=== PATIENT | female | born 1995 | race American Indian/Alaskan Native ===

== ENCOUNTER 2020-07-09 17:28 | Emergency (ER) | payer OTHER ==
[2020-07-09 19:33] VITALS: BP 139/73
--- NOTE | 2020-07-09 19:38 | Emergency Department Report ---
ED Fall HPI - General Chief Complaint: Abdominal Pain Stated Complaint: AIDEE/ABD/SHOULDER PAIN Time Seen by Provider: 07/09/20 19:33 Source: patient Mode of arrival: Ambulatory - History of Present Illness Initial Comments: 24-year-old 20-week female presents emerge department complaining of a mechanical trip and fall landing on her right side on a wood floor causing pain to her right ribs and abdominal region. She reports no vaginal bleeding, no vaginal discharge of fluid discharge of any type. Reports no fever, chills, sweats. No hemoptysis no hematemesis hematochezia pain to the right chest with with palpation and deep breath. She reports no presyncope or head trauma. Fall From: standing Place Fall Occurred: home Loss of Consciousness: none Prolonged Down Time?: no Symptoms Prior to Fall: none Quality: dull, aching Context: tripped/slipped Associated Symptoms: shortness of breath, abdominal pain. denies: neck pain, numbness, hematuria, lightheaded, confusion - Related Data Allergies Allergy/AdvReac Type Severity Reaction Status Date / Time No Known Allergies Allergy Unverified 07/09/20 19:33 ED Review of Systems ROS: Stated complaint: AIDEE/ABD/SHOULDER PAIN Other details as noted in HPI Comment: All other systems reviewed and negative ED Past Medical Hx - Past Medical History Previous Medical History?: No ED Physical Exam - General Limitations: No Limitations General appearance: alert, in no apparent distress - Head Head exam: Present: atraumatic, normocephalic - Eye Eye exam: Present: normal appearance, PERRL, EOMI Pupils: Present: normal accommodation - ENT ENT exam: Present: normal exam, normal orophraynx, mucous membranes moist, TM's normal bilaterally - Neck Neck exam: Present: normal inspection, full ROM. Absent: tenderness, meningismus, lymphadenopathy - Respiratory Respiratory exam: Present: normal lung sounds bilaterally, chest wall tenderness (To the right rib region with palpation. But no ecchymosis noted.). Absent: respiratory distress, wheezes, rales, rhonchi, decreased breath sounds - Cardiovascular Cardiovascular Exam: Present: regular rate, normal rhythm. Absent: systolic murmur, diastolic murmur, rubs, gallop - GI/Abdominal GI/Abdominal exam: Present: soft, tenderness (Tenderness to the suprapubic region with palpation. No rebound, abdomen the abdomen is still soft), normal bowel sounds - Extremities Exam Extremities exam: Present: normal inspection - Back Exam Back exam: Present: normal inspection - Neurological Exam Neurological exam: Present: alert, oriented X3 - Psychiatric Psychiatric exam: Present: normal affect, normal mood - Skin Skin exam: Present: warm, dry, intact, normal color. Absent: rash ED Course Vital Signs 07/09/20 19:33 Temperature 98.8 F Pulse Rate 94 H Respiratory 18 Rate Blood Pressure 139/73 [Right] O2 Sat by Pulse 100 Oximetry ED Medical Decision Making - Lab Data Result diagrams: 07/09/20 19:42 Lab Results 07/09/20 07/09/20 Range/Units 19:42 19:42 WBC 11.4 H (4.5-11.0) K/mm3 RBC 3.69 (3.65-5.03) M/mm3 Hgb 11.5 (10.1-14.3) gm/dl Hct 33.9 (30.3-42.9) % MCV 92 (79-97) fl MCH 31 (28-32) pg MCHC 34 (30-34) % RDW 14.8 (13.2-15.2) % Plt Count 311 (140-440) K/mm3 Lymph % (Auto) 16.2 (13.4-35.0) % [place] % (Auto) 10.7 H (0.0-7.3) % Eos % (Auto) 1.4 (0.0-4.3) % Baso % (Auto) 0.6 (0.0-1.8) % Lymph # (Auto) 1.9 (1.2-5.4) K/mm3 [place] # (Auto) 1.2 H (0.0-0.8) K/mm3 Eos # (Auto) 0.2 (0.0-0.4) K/mm3 Baso # (Auto) 0.1 (0.0-0.1) K/mm3 Seg Neutrophils % 71.1 H (40.0-70.0) % Seg Neutrophils # 8.1 H (1.8-7.7) K/mm3 HCG, Quant 86200 H (0-4) mIU/mL - Radiology Data Radiology results: report reviewed [address] [place] [id number] XRay Report Signed Patient: VIDHI PUENTES#: [id number] : 1995 Acct:[id number] Age/Sex: 24 / F ADM Date: 07/09/20 Loc: ED Attending Dr: Ordering Physician: FREYA PRADO Date of Service: 07/09/20 Procedure(s): XR ribs UNI w PA Chest 3+V RT Accession Number(s): [id number] cc: FREYA PRADO Fluoro Time In Minutes: RIGHT RIBS 3 VIEWS INDICATION / CLINICAL INFORMATION: Fall with lower right rib pain. COMPARISON: None available. FINDINGS: RIBS: No acute, displaced fracture or other acute abnormality. LUNGS: No acute findings. No pneumothorax. Signer Name: Anurag Perez MD Signed: 07/09/2020 9:05 PM Workstation Name: [id number] Transcribed By: SS Dictated By: Anurag Perez MD Electronically Authenticated By: Anurag Perez MD Signed Date/Time: 07/09/202104 DD/ 03 TD/TT: Ultrasound shows a heart rate of 164 with a estimated weight of 331 g. 20 weeks and 1 day no complications appreciated Print Cancel - Medical Decision Making 24-year-old [place] female 20 weeks status post slip and fall on the right side resulting in pain to the ribs and abdomen. X-rays were negative for fracture, pneumothorax or acute cardiopulmonary issues ultrasound also negative for any acute processes Critical care attestation.: If time is entered above; I have spent that time in minutes in the direct care of this critically ill patient, excluding procedure time. ED Disposition Clinical Impression: Fall, Rib pain, Pelvic pain Disposition: DC-01 TO HOME OR SELFCARE Is pt being admited?: No Does the pt Need Aspirin: No Condition: Stable Instructions: Abdominal Pain (ED), Nonspecific Chest Pain, Adult, Back Pain in , Pelvic Pain, Female, [id number], Chest Wall Pain, [id number], Pain Without a Known Cause, How to Use Cold Therapy Additional Instructions: Please be sure to follow-up with your DIRECTOR INDEPENDENT tomorrow for reevaluation utilize Tylenol as needed for pain.
[2020-07-09 20:19] LABS: Basophils # (Auto) 0.1 K/mm3 (0.0-0.1); Basophils % (Auto) 0.6 % (0.0-1.8); Eosinophils # (Auto) 0.2 K/mm3 (0.0-0.4); Eosinophils % (Auto) 1.4 % (0.0-4.3); Hematocrit 33.9 % (30.3-42.9); Hemoglobin 11.5 gm/dl (10.1-14.3); Lymphocytes # (Auto) 1.9 K/mm3 (1.2-5.4); Lymphocytes % (Auto) 16.2 % (13.4-35.0); Mean Corpuscular HGB Conc 34 % (30-34); Mean Corpuscular Volume 92 fl (79-97); Monocytes # (Auto) 1.2 K/mm3 (0.0-0.8); Monocytes % (Auto) 10.7 % (0.0-7.3); Platelet Count 311 K/mm3 (140-440); Red Blood Count 3.69 M/mm3 (3.65-5.03); Red Cell Distribution Width 14.8 % (13.2-15.2)
--- NOTE | 2020-07-09 21:10 | XRay Report ---
RIGHT RIBS 3 VIEWS INDICATION / CLINICAL INFORMATION: Fall with lower right rib pain. COMPARISON: None available. FINDINGS: RIBS: No acute, displaced fracture or other acute abnormality. LUNGS: No acute findings. No pneumothorax. Signer Name: Anurag Perez MD Signed: 07/09/2020 9:05 PM Workstation Name: [id number]
--- NOTE | 2020-07-09 22:29 | Ultrasound Report ---
ULTRASOUND OBSTETRIC COMPLETE INDICATION / CLINICAL INFORMATION: abd pain after fall. Clinical Gestational Age (GA) in weeks.days: 20.1 TECHNIQUE: Transabdominal. COMPARISON: None available. FINDINGS: Technically difficult examination. Patient unable to tolerate full examination secondary to significant pain. NUMBER: Single PRESENTATION: cephalic PLACENTA: Grade 1 morphology with anterior position and free of the os. MATERNAL ADNEXA: No significant abnormality. AMNIOTIC FLUID VOLUME: normal AMNIOTIC FLUID INDEX (KJ) in cm (if measured): Not measured. ANATOMY: Unable to perform on today's examination. MEASUREMENTS: - Biparietal Diameter = 4.7 cm = 20.1 weeks.days - Head Circumference = 17.6 cm = 20.0 weeks.days - Abdominal Circumference = 14.4 cm = 19.5 weeks.days - Femur Length = 3.4 cm = 20.4 weeks.days - Estimated Weight (in grams, if calculated): 331 g - Heart Rate (beats per minute): 164 ADDITIONAL FINDINGS: Cervical length is 2.4 cm. No evidence of funneling. PERCENTILE ESTIMATED WEIGHT (if calculated): Not calculated. AVERAGE ULTRASOUND AGE (AUA) in weeks.days = 20.1 IMPRESSION: 1. Single intrauterine with AUA of 20.1 weeks.days 2. Cervical length is decreased at 2.4 cm. No evidence of funneling. 3. Additional findings as above. Signer Name: Manav Brice MD Signed: 07/09/2020 10:24 PM Workstation Name: [id number]
== END 2020-07-09 23:15 | disposition home or self-care (01) ==
LOC: ED 17:28
DX: R07.81 Pleurodynia (principal); R10.2 Pelvic and perineal pain; W01.0XXA Fall on same level from slipping, tripping and stumbling without subsequent striking against object, initial encounter; Y93.89 Activity, other specified; Y92.89 Other specified places as the place of occurrence of the external cause; Y99.8 Other external cause status
CPT/HCPCS: 36415; 76805; 84702; 85025

== ENCOUNTER 2020-08-09 23:36 | Outpatient (CLI) | payer OTHER ==
[2020-08-09] MEDS ORDERED: LACTATED RINGERS 500 ML IV ONE (23:39)
[2020-08-10 00:12] VITALS: BP 123/67
--- NOTE | 2020-08-10 01:59 | Ultrasound Report ---
ULTRASOUND OBSTETRIC INDICATION / CLINICAL INFORMATION: PLACENTA INTEGRITY. Clinical Gestational Age (GA): TECHNIQUE: Transabdominal. COMPARISON: 07/09/2020 FINDINGS: There is a single intrauterine . Heart Rate: 163 beats per minute. Estimated Weight in grams (if calculated): Estimated Weight Growth Percentile (if calculated): Position: cephalic. Cervix: closed. Length in cm (if measured): Placenta: anterior and free of the os. Amniotic Fluid Volume: normal Amniotic Fluid Index (KJ) in cm (if calculated): . Maternal Adnexa: No significant abnormality. IMPRESSION: 1. . No significant sonographic abnormality. No evidence of a placental abruption Signer Name: Blane Worthy MD Signed: 08/10/2020 1:55 AM Workstation Name: [id number]
== END 2020-08-10 01:11 | disposition home or self-care (01) ==
LOC: TRG 23:36 → APU 08-10 00:03 → TRG 08-10 01:11
PROVIDERS: ATTEND Obstetrics & Gynecology
DX: Z34.92 Encounter for supervision of normal pregnancy, unspecified, second trimester (principal); Z3A.24 24 weeks gestation of pregnancy
CPT/HCPCS: 59025; 76815

== ENCOUNTER 2020-08-27 18:21 | Outpatient (CLI) | payer OTHER ==
[2020-08-27] MEDS ORDERED: LACTATED RINGERS 1,000 ML IV ONE (18:26)
[2020-08-27 19:32] LABS: Bilirubin,Urine NEG (Negative); Blood,Urine NEG (Negative); Color,Urine Yellow (Yellow); Hyaline Casts,Urine 1 /LPF; Mucus,Urine FEW /HPF; Protein,Urine <15 mg/dL mg/dL (Negative); Urobilinogen,Urine < 2.0 mg/dL (<2.0)
[2020-08-27 20:29] VITALS: BP 122/66
[2020-08-27] MEDS ORDERED: ACETAMINOPHEN 500 MG TAB PO ONE (20:44)
[2020-08-27] MEDS ORDERED: METOCLOPRAMIDE 10 MG TAB PO ONE (20:45)
[2020-08-27] MEDS ORDERED: diphenhydrAMINE 25 MG CAP PO ONE (20:45)
--- NOTE | 2020-08-27 21:42 | Event Note ---
Date: 08/27/20 (HOLT) Pt presented to triage with c/o a HOLT, nausea, and feeling dizzy. She is 27+ wks . Her main concern at the time of this assessment is her HOLT. States that the HOLT started this morning and is unrelieved by two doses of Tylenol. Pt states that she drinks plenty of water, but when questioned further she states that she drinks mostly sugary drinks and has had only one cup of water today. We discussed that she needs to stay hydrated and that sugary drinks in large amounts can cause dehydration. Will plan for IV fluids, medications for HOLT. We discussed relief measures for a HOLT. She denies blurred vision, spots before her eyes, chest pain, shortness of breath, upper abdominal pain, vaginal bleeding, LOF, ctxs. Her blood pressures have been WNL. After medication administration, pt with resolution of her HOLT. Pt to follow up in the office on 08/30 @ 1000am. Pt aware of appointment date and time.
== END 2020-08-27 22:49 | disposition home or self-care (01) ==
LOC: TRG 18:21 → APU 18:23 → TRG 22:49
PROVIDERS: ATTEND Obstetrics & Gynecology
DX: O26.892 Other specified pregnancy related conditions, second trimester (principal); R11.0 Nausea; R51.9 Headache, unspecified; R42 Dizziness and giddiness; O47.02 False labor before 37 completed weeks of gestation, second trimester; Z3A.27 27 weeks gestation of pregnancy
CPT/HCPCS: 59025; 81001; 96360; 96361; J7120

== ENCOUNTER 2020-09-27 15:32 | Outpatient (CLI) | payer OTHER ==
[2020-09-27] MEDS ORDERED: LACTATED RINGERS 1,000 ML IV ONE (16:07)
[2020-09-27 16:35] LABS: Bacteria,Urine 1+ /HPF (Negative); Bilirubin,Urine NEG (Negative); Blood,Urine NEG (Negative); Color,Urine Yellow (Yellow); Mucus,Urine FEW /HPF; Protein,Urine <15 mg/dL mg/dL (Negative); Urobilinogen,Urine < 2.0 mg/dL (<2.0)
[2020-09-27 16:56] VITALS: BP 115/64
== END 2020-09-27 18:10 | disposition home or self-care (01) ==
LOC: TRG 15:32 → APU 15:34 → TRG 18:10
PROVIDERS: ATTEND Obstetrics & Gynecology
DX: Z34.93 Encounter for supervision of normal pregnancy, unspecified, third trimester (principal); Z3A.31 31 weeks gestation of pregnancy
CPT/HCPCS: 59025; 81001

== ENCOUNTER 2020-10-25 21:30 | Observation (INO) | payer OTHER ==
[2020-10-25 23:17] LABS: Hematocrit 32.1 % (30.3-42.9); Mean Corpuscular HGB Conc 34 % (30-34); Mean Corpuscular Volume 91 fl (79-97); Platelet Count 306 K/mm3 (140-440); Red Blood Count 3.52 M/mm3 (3.65-5.03); Red Cell Distribution Width 14.1 % (13.2-15.2)
[2020-10-25 23:26] LABS: Bilirubin,Urine NEG (Negative); Blood,Urine NEG (Negative); Color,Urine Yellow (Yellow); Mucus,Urine 3+ /HPF
[2020-10-25 23:42] LABS: Alanine Aminotransferase 12 units/L (7-56)
[2020-10-26 01:20] LABS: Uric Acid 3.2 mg/dL (3.5-7.6)
[2020-10-26] MEDS ORDERED: DOCUSATE SODIUM 100 MG CAP PO PRN (01:39)
--- NOTE | 2020-10-26 01:48 | History and Physical Report ---
History of Present Illness Date of examination: 10/26/20 Chief complaint: Headache History of present illness: EDC Calculations LMP: 11/25/2020 Past History : 2 Term Births: 0 Premature Births: 1 Living Children: 0 Para: 0 Mult. Births: 1 Prev : 0 Aborta: 0 Elect. Ab: 0 Spont. Ab: 0 Ectopics: 0 # 1 Delivery date: 11/11/2014 Weeks Gestation: 5 months? labor: yes Delivery type: Hours of labor: 6 hours Anesthesia type: none Delivery location: [facility] Infant Sex: Female weight: 1-8,1-9 Comments: Premature ROM, , Twins, female X 2. Past Medical History: Reviewed history and no changes required: Scoliosis cHTN Anemia Past Surgical History: Reviewed history and no changes required: negative Past Medical History Anesthesia Complications: negative Anemia: positive Autoimmune Disorder: negative Bleeding Disorder: negative Blood Transfusions: negative Breast Disease: negative Diabetes: negative Heart Disease: negative Hypertension: negative Hepatitis/Liver Disease: negative Kidney Disease/UTI: negative Neurologic/Epilepsy/Migraines: negative Phlebitis/Varicosities: negative Psychiatric: positive, depression Pulmonary Disease/Asthma: negative Thyroid Disease: negative Hospitalizations: negative Surgery (Non-gynecologist): negative Abnormal PAP: negative RADHA Exposure: negative Infertility: negative Uterine Anomaly: negative Uterine Surgery (not C/S): negative Other Gynecologic Problems: negative Family Hx: HTN: Mother, MGF, MGM CA: MGM DM: Mother Infection History Hx of STD: chlamydia HIV Risk Eval: no Hepatitis B Risk Eval: low risk Personal hx. of genital herpes: no Partner hx. of genital herpes: no Rash, Viral, or Febrile illness since last LMP? no Varicella/Chicken Pox Status: Unknown TB Risk: no Genetic History Congenital Heart Defect: Mom: no Dad: no Marian Disease: Mom: no Dad: no Thalassemia Mom: no Dad: no Neural Tube Defect Mom: no Dad: no Down's Syndrome Mom: no Dad: no Sal-Sachs Mom: no Dad: no Sickle Cell Disease/Trait Mom: no Dad: no Hemophilia Mom: no Dad: no Muscular Dystrophy Mom: no Dad: no Cystic Fibrosis Mom: no Dad: no Door Chorea Mom: no Dad: no Mental Retardation Mom: no Dad: no Fragile X Mom: no Dad: no Other Genetic/Chromosomal Disorder Mom: no Dad: no Child w/other defect Mom: no Dad: no Enviromental Exposures Xray Exposure: no Medication, drug, or alcohol use since LMP: no Chemical/Other Exposure: no Exposure to Cat Liter: no Hx of Parvovirus (Fifth Disease): no Occupational Exposure to Children: none Active Medications (reviewed today): ONDANSETRON 8 MG ORAL TABLET DISINTEGRATING (ONDANSETRON) 1 po q12hrs prn VITAMINS TABS ( VIT-FE FUMARATE-FA TABS) 1 tab po qday Current Allergies (reviewed today): No known allergies Past History Past Medical History: hypertension Past Surgical History: other (see HPI) WEB EDITOR History: other (see HPI) Family/Genetic History: other (see HPI) Social history: no significant social history - Obstetrical History Expected Date of Delivery: 11/25/20 Actual Gestation: 36 Week(s) 1 Day(s) : 2 Para: 1 Hx # Term Pregnancies: 0 Number of Pregnancies: 1 Spontaneous Abortions: 0 Induced : 0 Number of Living Children: 0 Medications and Allergies Allergies Allergy/AdvReac Type Severity Reaction Status Date / Time No Known Allergies Allergy Verified 08/09/20 23:40 Home Medications Medication Instructions Recorded Confirmed Last Taken Type No Known Home Medications [No 10/26/20 10/26/20 Unknown History Reported Home Medications] Active Meds: Active Medications Acetaminophen (Acetaminophen 325 Mg Tab) 650 mg PO Q4H PRN PRN Reason: Pain MILD(1-3)/Fever >100.5/HOLT Acetaminophen/Butalbital/Caffeine (Butalb/Acetaminophen/Caffeine Tab) 2 tab PO ONCE ONE Stop: 10/26/20 02:30 Docusate Sodium (Docusate Sodium 100 Mg Cap) 100 mg PO Q12H PRN PRN Reason: Constipation Hydroxyzine Pamoate (Hydroxyzine Pamoate 50 Mg Cap) 100 mg PO ONCE ONE Stop: 10/26/20 02:29 Multivitamins/Iron/Calcium ( Wlv46-Nr Fumarate-Folic Acid Vit Tab) 1 each PO QDAY PUMA Review of Systems All systems: negative Neurological: headaches - Vital Signs Vital signs: Vital Signs Pulse BP 94 H 125/77 10/25/20 22:20 10/25/20 22:20 Temp Pulse Resp BP Pulse Ox 79 121/70 100 10/26/20 01:41 10/26/20 01:30 10/26/20 01:41 Results Result Diagrams: 10/25/20 22:30 10/25/20 22:30 Abnormal lab results 10/25/20 10/25/20 Range/Units 22:30 22:30 RBC 3.52 L (3.65-5.03) M/mm3 Creatinine 0.4 L (0.6-1.2) mg/dL Uric Acid 3.2 L (3.5-7.6) mg/dL All other labs normal. Assessment and Plan Pt presented with HOLT unrelieved by tylenol and a hx HTN. she reported her b/p at home by own Minded device 140/98. Plan to admit for b/p monitoring and repeat 24hr urine. 05/27/20 24h TP 144. Admission orders in EMR. - Patient Problems (1) 35 weeks gestation of Status: Acute (2) HTN (hypertension) Status: Acute (3) Headache Status: Acute Qualifiers: Headache chronicity pattern: acute headache Plan to address problem: blood pressures normotensive will monitor and collect 24hr urine (4) Rubella non-immune status, antepartum Status: Acute
[2020-10-26] MEDS ORDERED: BUTALB/ACETAMINOPHEN/CAFFEINE TAB PO ONE (02:29)
--- NOTE | 2020-10-26 07:58 | Progress Note ---
Assessment and Plan A: 24 y.o. @ 35.5 wks with c/o HOLT. Hx of cHTN. P: Continue with 24 hour collection. Due to be completed @ 0300am on 10/27. Continue to monitor status through EFM. Continue to monitor blood pressures and for s/sx of pre eclampsia. Subjective - Subjective Date of service: 10/26/20 (Pt feeling better.) Principal diagnosis: IUP @ 35.5 wks, HOLT, Hx of cHTN no meds Patient reports: movement normal, no new complaints, no loss of fluid, no vaginal bleeding, no contractions Objective - Vital Signs Vital Signs: Vital Signs - 12hr 10/25/20 10/25/20 10/25/20 22:20 22:21 22:26 Temperature Pulse Rate 94 H 85 90 Respiratory Rate Blood Pressure 125/77 O2 Sat by Pulse 100 100 Oximetry 10/25/20 10/25/20 10/25/20 22:31 22:36 22:42 Temperature Pulse Rate 91 H 85 85 Respiratory Rate Blood Pressure 124/70 O2 Sat by Pulse 100 100 100 Oximetry 10/25/20 10/25/20 10/25/20 22:47 22:52 22:57 Temperature Pulse Rate 89 81 87 Respiratory Rate Blood Pressure O2 Sat by Pulse 99 99 100 Oximetry 10/25/20 10/25/20 10/25/20 23:00 23:02 23:07 Temperature Pulse Rate 83 89 94 H Respiratory Rate Blood Pressure 122/74 O2 Sat by Pulse 100 100 Oximetry 10/25/20 10/25/20 10/25/20 23:12 23:17 23:22 Temperature Pulse Rate 96 H 95 H 95 H Respiratory Rate Blood Pressure O2 Sat by Pulse 100 100 100 Oximetry 10/25/20 10/25/20 10/25/20 23:27 23:30 23:32 Temperature Pulse Rate 100 H 97 H 88 Respiratory Rate Blood Pressure 129/78 O2 Sat by Pulse 100 100 Oximetry 10/25/20 10/25/20 10/25/20 23:37 23:42 23:47 Temperature Pulse Rate 98 H 87 92 H Respiratory Rate Blood Pressure O2 Sat by Pulse 100 100 100 Oximetry 10/25/20 10/25/20 10/26/20 23:52 23:57 00:00 Temperature Pulse Rate 85 94 H 88 Respiratory Rate Blood Pressure 128/67 O2 Sat by Pulse 100 99 Oximetry 10/26/20 10/26/20 10/26/20 00:02 00:07 00:12 Temperature Pulse Rate 92 H 86 89 Respiratory Rate Blood Pressure O2 Sat by Pulse 100 100 100 Oximetry 10/26/20 10/26/20 10/26/20 00:17 00:22 00:27 Temperature Pulse Rate 99 H 92 H 96 H Respiratory Rate Blood Pressure O2 Sat by Pulse 100 100 100 Oximetry 10/26/20 10/26/20 10/26/20 00:31 00:32 00:37 Temperature Pulse Rate 87 86 94 H Respiratory Rate Blood Pressure 120/67 O2 Sat by Pulse 100 100 Oximetry 10/26/20 10/26/20 10/26/20 00:42 00:47 00:52 Temperature Pulse Rate 87 89 78 Respiratory Rate Blood Pressure O2 Sat by Pulse 100 100 100 Oximetry 10/26/20 10/26/20 10/26/20 00:57 01:00 01:02 Temperature Pulse Rate 90 82 86 Respiratory Rate Blood Pressure 117/70 O2 Sat by Pulse 100 99 Oximetry 10/26/20 10/26/20 10/26/20 01:11 01:16 01:21 Temperature Pulse Rate 81 92 H 88 Respiratory Rate Blood Pressure O2 Sat by Pulse 100 100 100 Oximetry 10/26/20 10/26/20 10/26/20 01:26 01:30 01:31 Temperature Pulse Rate 81 76 82 Respiratory Rate Blood Pressure 121/70 O2 Sat by Pulse 100 100 Oximetry 10/26/20 10/26/20 10/26/20 01:36 01:41 01:46 Temperature Pulse Rate 95 H 79 80 Respiratory Rate Blood Pressure O2 Sat by Pulse 99 100 100 Oximetry 10/26/20 10/26/20 10/26/20 01:51 01:56 02:01 Temperature Pulse Rate 83 89 72 Respiratory Rate Blood Pressure O2 Sat by Pulse 100 100 100 Oximetry 10/26/20 10/26/20 10/26/20 02:43 05:34 05:38 Temperature 98.1 F 98.2 F Pulse Rate 73 Respiratory 17 Rate Blood Pressure 130/73 O2 Sat by Pulse Oximetry 10/26/20 07:47 Temperature Pulse Rate 74 Respiratory Rate Blood Pressure 118/75 O2 Sat by Pulse Oximetry - Exam Narrative Exam: Pt denies HOLT, blurred vision, spots before eyes, chest pain, shortness of breath, upper abdominal pain, vaginal bleeding, LOF, and ctxs. We discussed should any of these symptoms occur to let the RN know immediately. Breasts: deferred Cardiovascular: Regular rate Lungs: Normal air movement Abdomen: Present: normal appearance, soft Uterus: Present: normal FHR: category 1 Uterine Contraction Monitor Mode: External Uterine Contraction Pattern: Absent Extremities: normal Deep Tendon Reflex Grade: Normal +2 - Labs Labs: Abnormal Labs 10/25/20 10/25/20 22:30 22:30 RBC 3.52 L Creatinine 0.4 L Uric Acid 3.2 L Laboratory Results - last 24 hr 10/25/20 10/25/20 10/25/20 22:30 22:30 22:30 WBC 7.9 RBC 3.52 L Hgb 11.0 Hct 32.1 MCV 91 MCH 31 MCHC 34 RDW 14.1 Plt Count 306 Creatinine 0.4 L Estimated GFR > 60 Uric Acid 3.2 L AST 16 ALT 12 Lactate Dehydrogenase 169 Urine Color Yellow Urine Turbidity Clear Urine pH 5.0 Ur Specific [employer] [place] 1.029 Urine Protein 30 mg/dl Urine Glucose (UA) Neg Urine Ketones Neg Urine Blood Neg Urine Nitrite Neg Urine Bilirubin Neg Urine Urobilinogen 2.0 Ur Leukocyte Esterase Neg Urine WBC (Auto) 3.0 Urine RBC (Auto) 4.0 U Epithel Cells (Auto) 5.0 Urine Mucus 3+
[2020-10-26] MEDS: ACETAMINOPHEN 325 MG TAB PO PRN (09:45)
[2020-10-26] MEDS ORDERED: PRENATAL VIT27-FE FUMARATE-FOLIC ACID VIT TAB PO SCH (10:00)
[2020-10-27] MEDS: ACETAMINOPHEN 325 MG TAB PO PRN (01:14)
[2020-10-27 03:19] LABS: Creatinine,Urine 94.1 mg/dL (0.1-20.0)
[2020-10-27] MEDS ORDERED: ZOLPIDEM 5 MG TAB PO PRN (03:35)
[2020-10-27 03:43] LABS: Creatinine 24 Hour,Urine 1.5 (0.8-2.8)
[2020-10-27] MEDS ORDERED: LACTATED RINGERS 500 ML IV SCH (03:45)
[2020-10-27] MEDS ORDERED: LACTATED RINGERS 1,000 ML ONE (04:08)
--- NOTE | 2020-10-27 07:04 | Discharge Summary ---
Providers - Providers Date of Admission: 10/26/20 01:40 Date of discharge: 10/27/20 (Pt desires to go home) Attending physician: SEBAS SANDS Primary care physician: MYRNA GERONIMO Hospitalization Reason for admission: other (24hr urine collection TP 240) Hospital course: Elevated BP Admit for collection of 24hr urine TP240 Pt in good spirits. Sleeping Will d/c this AM after breakfast BP 130-120/80-70 Denies HOLT, blurred vision, chest pain Pt reports good FM. No ctx recorded at this time. Pt has an appt Thursday @ 1330 in the [place] office. Encouraged to rest, hydrate, avoid salt. Call with any sx HOLT, blurred vision, chest pain. All concerns addressed Condition at discharge: Good Disposition: 01 HOME / SELF CARE / HOMELESS - Discharge Diagnoses (1) HTN (hypertension) Status: Acute Comment: keep appt Thursday @ 1330 Plan - Provider Discharge Summary Activity: routine, other (pelvic rest, hydration) Diet: other (no salt) Additional instructions: [] Smoking cessation referral if applicable(refer to patient education folder for contact #) [] Refer to [facility] Booklet Call your doctor immediately for: * Fever > 100.5 * Heavy vaginal bleeding ( >1 pad per hour) * Severe persistent headache * Shortness of breath * Reddened, hot, painful area to leg or breast * Drainage or odor from incision. * Keep incision clean and dry at all times and follow doctor's instructions regarding bathing/showering - Follow up plan Follow up: MYRNA GERONIMO MD [Primary Care Provider] - 11/06/20 1:30 pm (Rest, eat healthy avoid salty foods, drink pleanty of water. Call with headache, blurred vision, chest pain. Keep appointment Thursday Call with any concerns.)
[2020-10-27 07:09] VITALS: BP 128/71
== END 2020-10-27 08:30 | disposition home or self-care (01) ==
LOC: TRG 21:30 → APU 21:31 → LD 10-26 01:40 → TRG 10-26 01:40
PROVIDERS: ADMIT Obstetrics & Gynecology; ATTEND Obstetrics & Gynecology
DX: O26.893 Other specified pregnancy related conditions, third trimester (principal); Z20.822 Contact with and (suspected) exposure to COVID-19; R51.9 Headache, unspecified; B06.9 Rubella without complication; O10.913 Unspecified pre-existing hypertension complicating pregnancy, third trimester; Z3A.35 35 weeks gestation of pregnancy
CPT/HCPCS: 36415; 59025; 81001; 82565; 82570; 83615; 84156; 84450; 84460; 84550; 85027; G0378; Q0177; U0003; G0379; J7120

== ENCOUNTER 2020-10-29 22:18 | Outpatient (CLI) | payer OTHER ==
[2020-10-29] MEDS ORDERED: LACTATED RINGERS 1,000 ML IV ONE (23:17)
[2020-10-29 23:45] LABS: Hematocrit 31.5 % (30.3-42.9); Hemoglobin 10.9 gm/dl (10.1-14.3); Mean Corpuscular HGB Conc 35 % (30-34); Mean Corpuscular Volume 91 fl (79-97); Platelet Count 316 K/mm3 (140-440); Red Blood Count 3.46 M/mm3 (3.65-5.03); Red Cell Distribution Width 14.3 % (13.2-15.2)
[2020-10-29 23:53] LABS: Bacteria,Urine 1+ /HPF (Negative); Bilirubin,Urine NEG (Negative); Blood,Urine NEG (Negative); Color,Urine Yellow (Yellow); Hyaline Casts,Urine 1 /LPF; Protein,Urine <15 mg/dL mg/dL (Negative); Urobilinogen,Urine < 2.0 mg/dL (<2.0); WBC,Urine < 1.0 /HPF (0.0-6.0)
[2020-10-29] MEDS ORDERED: ACETAMINOPHEN 500 MG TAB PO ONE (23:57)
[2020-10-30 00:07] LABS: Alanine Aminotransferase 13 units/L (7-56)
[2020-10-30] MEDS ORDERED: ALUM-MAG HYDROXIDE-SIMETHICONE 200-200-20MG/5ML ORAL LIQD 30 ML PO ONE (00:35)
[2020-10-30 02:27] VITALS: BP 130/77
--- NOTE | 2020-11-01 11:06 | Electrocardiograph Report ---
[facility] Test Date: 2020-10-30 Test Time: 02:37:05 Pat Name: VIDHI PUENTES Department: Room: Gender: F Rpg Developer: [id number] : 1995 Requested By: VANESSA BOYKIN Order Number: [id number] Reading MD: Emanuel Sharif Measurements Intervals [place] Rate: 92 P: 39 IN: 146 QRS: 34 QRSD: 96 T: 17 QT: 366 QTc: 453 Interpretive Statements Sinus rhythm No previous ECG available for comparison Electronically Signed On 11-01-2020 11:05:34 EDT by Emanuel Sharif
== END 2020-10-30 03:05 | disposition home or self-care (01) ==
LOC: TRG 22:18 → APU 22:19 → TRG 10-30 03:05
PROVIDERS: ATTEND Obstetrics & Gynecology
DX: O13.3 Gestational [pregnancy-induced] hypertension without significant proteinuria, third trimester (principal); Z3A.36 36 weeks gestation of pregnancy
CPT/HCPCS: 36415; 59025; 81001; 82565; 83615; 84112; 84450; 84460; 84550; 85027; 93005